=== PATIENT | female | born 1985 | race Caucasian/White ===

== ENCOUNTER → 2018-05-10 13:08 | Outpatient (CLI) | payer OTHER, SELFPAY ==
--- NOTE | 2018-05-10 13:11 | DI.RAD.S_ITS ---
PROCEDURE: HL HYSTEROSAPINGOGRAPHY INDICATIONS: Infertility COMPARISON: None. FINDINGS: Patient had a documented negative test prior to the study. Following speculum insertion, a balloon-tip catheter was inserted into the cervical canal, and secured by inflating the balloon. Contrast was then injected into the endometrial canal. Uterus: The uterine cavity appears normal in size and morphology, without synechiae or masses. Fallopian tubes: Both fallopian tubes fill with contrast, and appear normal in caliber and morphology. There is ready dispersion of contrast into the peritoneal cavity. IMPRESSION: Excellent quality visualization of the fallopian tubes bilaterally which are patent, and show excellent retrograde flow of injected contrast by Dr. Major tracking into the peritoneal space immediately adjacent to each ovary. The endometrial space itself appears normal also. Dictated by: Piero Hernández M.D. on 05/10/2018 at 15:37 Approved by: Piero Hernández M.D. on 05/10/2018 at 15:37
--- NOTE | 2018-05-10 18:41 | PM.PROC.1 ---
Procedures Date/Time Date of procedure: 05/10/18 Time of procedure: 13:26 General Procedure description: Patient came in for hysterosalpingogram for infertility. Consent form was reviewed with the patient, risks were discussed with the patient, side effects discussed and consent form signed. The patient had a single-tooth tenaculum placed on the anterior lip of the cervix. The uterine catheter was placed in the balloon inflated with 1-1/2 cc of air. The dye was slowly injected under fluoroscopy. The uterus appeared normal and there was good flow of the dye through the fallopian tubes. The patient tolerated the procedure well. Complications: none
== END ==
PROVIDERS: PCP Family Medicine; Visit Provider Specialist
DX: N97.9 Female infertility, unspecified (principal)
CPT/HCPCS: 58340; 74740

== ENCOUNTER → 2018-05-19 07:03 | Outpatient (CLI) | payer OTHER, SELFPAY ==
[2018-05-19 08:29] LABS: Bilirubin Urine UA NEGATIVE (NEGATIVE); Color Urine UA YELLOW; Glucose Urine UA NEGATIVE (Normal); Ketones Urine UA NEGATIVE (NEGATIVE); Leukocyte Esterase Urine UA 3+ (NEGATIVE); Nitrite Urine UA POSITIVE (Negative); Occult Blood Urine UA 3+ (Negative); Protein Urine UA TRACE (Negative); Urobilinogen Urine UA 0.2 E.U./dL (0.2); pH Urine UA 8.5 (4.5-8.0)
[2018-05-19 08:36] LABS: Appearance Urine UA CLOUDY
[2018-05-19 09:03] LABS: Bacteria Urine Many (>30); Culture Indicated Urine Specimen Cultured; RBC Urine 1-5/HPF (0-5/HPF); Squamous Epithelial Cell Urine 1-5 /HPF; WBC Urine 30-100/HPF (0-5/HPF)
== END ==
PROVIDERS: PCP Family Medicine; Visit Provider Family Medicine
DX: R30.0 Dysuria (principal)
CPT/HCPCS: 81001; 87077; 87086; 87186

== ENCOUNTER → 2018-06-21 17:24 | Outpatient (CLI) | payer OTHER, SELFPAY ==
[2018-06-21 19:21] LABS: Influenza A and B by PCR Rapid Negative (Negative)
== END ==
PROVIDERS: PCP Family Medicine; Visit Provider Physician Assistant
DX: J02.9 Acute pharyngitis, unspecified (principal); R59.9 Enlarged lymph nodes, unspecified
CPT/HCPCS: 87070; 87077; 87400

== ENCOUNTER → 2018-06-24 07:04 | Outpatient (CLI) | payer SELFPAY ==
[2018-06-24 08:01] LABS: Final Volume 0.5 mL; Initial Volume 3 mL; Semen 30 min. Liquification? Yes
== END ==
PROVIDERS: PCP Family Medicine; Visit Provider Specialist
DX: Z31.9 Encounter for procreative management, unspecified (principal)
CPT/HCPCS: 58323

== ENCOUNTER → 2018-07-24 11:19 | Outpatient (CLI) | payer OTHER, SELFPAY ==
[2018-07-24 11:55] LABS: Semen 30 min. Liquification? Yes
[2018-07-24 11:56] LABS: Initial Volume 1.25 mL
[2018-07-24 12:14] LABS: Final Volume 0.5 mL
== END ==
PROVIDERS: PCP Family Medicine; Visit Provider Obstetrics & Gynecology
DX: N97.0 Female infertility associated with anovulation (principal)
CPT/HCPCS: 58323

== ENCOUNTER → 2018-08-23 08:11 | Outpatient (CLI) | payer SELFPAY ==
[2018-08-23 09:33] LABS: Final Volume 0.5 mL; Initial Volume 2 mL; Semen 30 min. Liquification? Yes
== END ==
PROVIDERS: PCP Family Medicine; Visit Provider Specialist
DX: N97.0 Female infertility associated with anovulation (principal)
CPT/HCPCS: 58323